=== PATIENT | female | born 1990 | race Caucasian/White ===

== ENCOUNTER 2020-03-29 07:15 | Outpatient (REF) | payer MEDICAID, SELFPAY | END 2020-03-29 07:16 | disposition home or self-care (01) | LOC: HO.LAB 07:15 | PROVIDERS: Visit Provider Internal Medicine | DX: Z20.828 Contact with and (suspected) exposure to other viral communicable diseases (principal) | CPT/HCPCS: C9803; U0003 ==

== ENCOUNTER 2020-04-08 06:47 | Outpatient (REF) | payer MEDICAID, SELFPAY | END 2020-04-08 06:48 | disposition home or self-care (01) | LOC: HO.LAB 06:47 | PROVIDERS: Visit Provider Internal Medicine | DX: Z20.828 Contact with and (suspected) exposure to other viral communicable diseases (principal) | CPT/HCPCS: 36415; C9803; U0003 ==

== ENCOUNTER 2020-04-15 06:10 | Outpatient (REF) | payer MEDICAID, SELFPAY | END 2020-04-15 06:11 | disposition home or self-care (01) | LOC: HO.LAB 06:10 | PROVIDERS: PCP Student in an Organized Health Care Education/Training Program; Visit Provider Internal Medicine | DX: Z20.822 Contact with and (suspected) exposure to COVID-19 (principal) | CPT/HCPCS: 36415; C9803; U0003 ==

== ENCOUNTER 2020-04-22 06:43 | Outpatient (REF) | payer MEDICAID, SELFPAY | END 2020-04-22 06:44 | disposition home or self-care (01) | LOC: HO.LAB 06:43 | PROVIDERS: PCP Student in an Organized Health Care Education/Training Program; Visit Provider Internal Medicine | DX: Z20.822 Contact with and (suspected) exposure to COVID-19 (principal) | CPT/HCPCS: 36415; C9803; U0003 ==

== ENCOUNTER 2020-04-29 06:11 | Outpatient (REF) | payer MEDICAID, SELFPAY | END 2020-04-29 06:12 | disposition home or self-care (01) | LOC: HO.LAB 06:11 | PROVIDERS: PCP Student in an Organized Health Care Education/Training Program; Visit Provider Internal Medicine | DX: Z20.822 Contact with and (suspected) exposure to COVID-19 (principal) | CPT/HCPCS: 36415; C9803; U0003 ==

== ENCOUNTER 2020-05-08 06:30 | Outpatient (REF) | payer MEDICAID, SELFPAY | END 2020-05-08 06:31 | disposition home or self-care (01) | LOC: HO.LAB 06:30 | PROVIDERS: Visit Provider Internal Medicine | DX: Z20.822 Contact with and (suspected) exposure to COVID-19 (principal) | CPT/HCPCS: 36415; C9803; U0003; U0005 ==

== ENCOUNTER 2020-06-19 13:28 | Outpatient (REF) | payer MEDICAID, SELFPAY | END 2020-06-19 13:29 | disposition home or self-care (01) | LOC: HO.LAB 13:28 | PROVIDERS: Visit Provider Internal Medicine | DX: Z20.822 Contact with and (suspected) exposure to COVID-19 (principal) | CPT/HCPCS: 36415; C9803; U0003; U0005 ==

== ENCOUNTER 2020-07-01 07:39 | Outpatient (REF) | payer MEDICAID, SELFPAY ==
[2020-07-01 09:35] LABS: SARS COV2 PCR INHOUSE NEGATIVE (Negative)
== END 2020-07-01 07:40 | disposition home or self-care (01) ==
LOC: HO.LAB 07:39
PROVIDERS: Visit Provider Internal Medicine
DX: Z20.822 Contact with and (suspected) exposure to COVID-19 (principal)
CPT/HCPCS: C9803; U0003

== ENCOUNTER 2020-07-29 07:38 | Outpatient (REF) | payer MEDICAID, SELFPAY ==
[2020-07-29 07:57] LABS: COVID-19 Test Negative (Negative)
== END 2020-07-29 07:39 | disposition home or self-care (01) ==
LOC: HO.LAB 07:38
PROVIDERS: Visit Provider Internal Medicine
DX: Z20.822 Contact with and (suspected) exposure to COVID-19 (principal)
CPT/HCPCS: 36415; 87635; C9803